=== PATIENT | female | born 1975 | race Caucasian/White ===

== ENCOUNTER 2019-06-23 14:57 | Emergency (ER) | payer SELFPAY ==
[~2019-06-23] VITALS: Ht 157.5 cm; Wt 80.3 kg
[2019-06-23 15:06] VITALS: BP 123/82
--- NOTE | 2019-06-23 15:10 | NUR ---
PT AMBULATED TO ER BED 03
--- NOTE | 2019-06-23 15:20 | NUR ---
44 Y/O F C/C HEROIN/ALCOHOL WITHDRAWAL SINCE MONDAY. PER PT LAST ALCOHOL DRINK SHE HAD WAS MONDAY; HEROIN USE LAST TIME USED MONDAY. PT NEURO WDL. PUPILS PERRLA. A/OX4. PT CALM AND COOPERATIVE. PT NKA. HX DEPRESSION,EDEMA. RX LASIX, GOUDAN. VOMITING/DIARREAH SINCE MONDAY. SIDE RAIL X1.
[2019-06-23] MEDS ORDERED: LORazepam 1 MG TAB PO ONE (15:30)
[2019-06-23 16:04] VITALS: BP 123/82
--- NOTE | 2019-06-23 16:04 | NUR ---
Patient discharged with v/s stable. Written and verbal after care instructions given and explained. Patient alert, oriented and verbalized understanding of instructions. Ambulatory with steady gait. All questions addressed prior to discharge. ID band removed. Patient advised to follow up with PMD. Rx of CHLORDIAZEPOXIDE,CLONIDINE given. Patient educated on indication of medication including possible reaction and side effects. Opportunity to ask questions provided and answered.
== END 2019-06-23 16:04 | disposition home or self-care (01) ==
LOC: MED 14:57
DX: F10.239 Alcohol dependence with withdrawal, unspecified (principal); F11.23 Opioid dependence with withdrawal; F32.9 Major depressive disorder, single episode, unspecified
CPT/HCPCS: 99283